=== PATIENT | male | born 1960 | race Caucasian/White ===

== ENCOUNTER 2017-07-27 20:40 | Emergency (ER) | payer OTHER ==
[~2017-07-27] VITALS: Ht 180.3 cm; Wt 154.2 kg
[~2017-07-27 20:40] MED LIST: EPIN.3I IM; HYDACE5 PO; PRED10 PO
[2017-07-27] MEDS ORDERED: LISI20 PO (22:34)
[2017-07-27] MEDS ORDERED: METO25ER PO (22:34)
[2017-07-27] MEDS ORDERED: Norco 10-325 T1 EACH PO (23:01)
[2017-07-27] MEDS ORDERED: Zofran Odt4 MG SL (23:01)
[2017-07-27] MEDS ORDERED: Cleocin HCl150 MG PO (23:01)
== END 2017-07-27 23:29 | disposition home or self-care (01) ==
LOC: ER 20:40
DX: L02.31 Cutaneous abscess of buttock (principal); I10 Essential (primary) hypertension; Z91.030 Bee allergy status; Z79.899 Other long term (current) drug therapy; Z79.2 Long term (current) use of antibiotics; Z87.891 Personal history of nicotine dependence
CPT/HCPCS: 10061; 96372; 99284; J1885

== ENCOUNTER 2017-07-28 21:35 | Emergency (ER) | payer OTHER ==
[~2017-07-28] VITALS: Ht 180.3 cm; Wt 154.2 kg
[~2017-07-28 21:35] MED LIST changes: +Cleocin HCl150 MG PO; +LISI20 PO; +METO25ER PO; +Norco 10-325 T1 EACH PO; +Zofran Odt4 MG SL
[2017-07-29] MEDS ORDERED: Percocet 5-3251 EACH PO (21:37)
== END 2017-07-29 01:04 | disposition home or self-care (01) ==
LOC: ER 21:35
DX: Z48.817 Encounter for surgical aftercare following surgery on the skin and subcutaneous tissue (principal); I10 Essential (primary) hypertension; Z91.030 Bee allergy status; Z79.899 Other long term (current) drug therapy; Z87.891 Personal history of nicotine dependence
CPT/HCPCS: 36415; 96365; 99283

== ENCOUNTER 2017-07-29 20:10 | Emergency (ER) | payer OTHER ==
[~2017-07-29] VITALS: Ht 180.3 cm; Wt 154.2 kg
[2017-07-29] MEDS ORDERED: Percocet 5-3251 EACH PO (21:37)
== END 2017-07-29 21:41 | disposition home or self-care (01) ==
LOC: ER 20:10
DX: Z48.817 Encounter for surgical aftercare following surgery on the skin and subcutaneous tissue (principal); Z91.030 Bee allergy status; Z79.899 Other long term (current) drug therapy; Z79.2 Long term (current) use of antibiotics; I10 Essential (primary) hypertension; Z87.891 Personal history of nicotine dependence
CPT/HCPCS: 99282